=== PATIENT | male | born 1980 | race American Indian/Alaskan Native ===

== ENCOUNTER 2021-12-01 15:38 | Outpatient (CLI) | payer BC ==
[2021-12-01 16:28] LABS: Basophils % (Auto) 0.6 % (0.0-1.8); Eosinophils # (Auto) 0.1 K/mm3 (0.0-0.4); Eosinophils % (Auto) 1.6 % (0.0-4.3); Hemoglobin 13.7 gm/dl (11.8-15.2); Lymphocytes # (Auto) 2.2 K/mm3 (1.2-5.4); Lymphocytes % (Auto) 38.5 % (13.4-35.0); Mean Corpuscular HGB Conc 33 % (32-34); Mean Corpuscular Volume 88 fl (84-94); Monocytes # (Auto) 0.4 K/mm3 (0.0-0.8); Monocytes % (Auto) 6.5 % (0.0-7.3); Platelet Count 250 K/mm3 (140-440); Red Blood Count 4.69 M/mm3 (3.65-5.03); Red Cell Distribution Width 14.2 % (13.2-15.2)
[2021-12-01 16:31] LABS: Alanine Aminotransferase 34 units/L (7-56); Albumin 4.7 g/dL (3.9-5); BUN/Creatinine Ratio 9; Blood Urea Nitrogen 8 mg/dL (9-20); Calcium 9.4 mg/dL (8.4-10.2); Hemolysis Index 6
== END 2021-12-01 15:39 | disposition home or self-care (01) ==
LOC: LAB 15:38
PROVIDERS: ATTEND Surgery
DX: K80.20 Calculus of gallbladder without cholecystitis without obstruction (principal)
CPT/HCPCS: 36415; 80053; 82150; 85025

== ENCOUNTER 2021-12-17 09:08 | Day surgery (SDC) | payer BC ==
[~2021-12-17 09:08] MED LIST: ACETAMINOPHEN 500 MG TAB PO SCH; CELECOXIB 200 MG CAP PO NR; GABAPENTIN 300 MG CAP PO NR; LACTATED RINGERS 1,000 ML IV SCH; MIDAZOLAM 2 MG/2 ML INJ IV NR
[2021-12-17] MEDS ORDERED: oxyCODONE /ACETAMINOPHEN 5-325MG TAB PO PRN (09:47)
--- NOTE | 2021-12-17 09:47 | Anesthesia Consultation ---
Anesthesia Consult and Med Hx Date of service: 12/17/21 - Airway Anesthetic Teeth Evaluation: Good ROM Head & Neck: Adequate Mental/Hyoid Distance: Adequate Mallampati Class: Class III Intubation Access Assessment: Possibly Difficult - Pulmonary Exam CTA: Yes - Cardiac Exam Cardiac Exam: RRR - Pre-Operative Health Status ASA Pre-Surgery Classification: ASA2 Proposed Anesthetic Plan: General - Pulmonary Hx Smoking: No Hx Respiratory Symptoms: No Hx Sleep Apnea: No (possible; patient has sleep study scheduled) - Cardiovascular System Hx Hypertension: Yes (last dose amlodipine yesterday PM) Hx Heart Attack/AMI: No Hx Percutaneous Transluminal Coronary Angioplasty (PTCA): No Hx Cardia Arrhythmia: No (palpitation with recent neg cardiac w/u per patient) - Central Nervous System CVA: No - Endocrine Hx Renal Disease: No Hx Liver Disease: No Hx Non-Insulin Dependent Diabetes: No (pre-DM; no meds) Hx Thyroid Disease: No - Other Systems Hx Obesity: Yes (BMI 33) - Additional Comments Anesthesia Medical History Comments: No hx anesthetic complications. Went to ED last week for palpitations and had negative cardiac work up. Followed up with outpatient cardiology on 12/14/21 and antihypertensive was changed.
--- NOTE | 2021-12-17 09:47 | Anesthesia Day of Surgery ---
Anesthesia Day of Surgery - Day of Surgery Patient Examined: Yes Patient H&P Reviewed: Yes Patient is NPO: Yes
[2021-12-17] MEDS ORDERED: ONDANSETRON 4 MG/2 ML INJ IV PRN (09:48)
[2021-12-17] MEDS ORDERED: HYDROmorphone 0.5 MG/0.5 ML INJ IV PRN (09:48)
[2021-12-17] MEDS ORDERED: ceFAZolin/Water 2 GM/20 ML 2 GM/20 ML SYRINGE IV ONE (10:09)
[2021-12-17] MEDS ORDERED: ONDANSETRON 4 MG/2 ML INJ ONE (10:32)
[2021-12-17] MEDS ORDERED: ROCURONIUM 50 MG/5 ML INJ IV ONE ×2 (10:32→11:59)
[2021-12-17] MEDS ORDERED: fentaNYL 100 MCG/2 ML INJ ONE (10:32)
[2021-12-17] MEDS ORDERED: LIDOCAINE-MPF (0.5%) 5 MG/1 ML VIAL 50 ML INFILTRATI ONE (10:32)
[2021-12-17] MEDS ORDERED: propofoL 200 MG/20 ML VIAL IV ONE (10:33)
[2021-12-17] MEDS ORDERED: BUPIVACAINE-EPINEPHRINE/PF 0.5%-1:200,000 (30 ML) VIAL INFILTRATI ONE (10:39)
[2021-12-17] MEDS ORDERED: LIDOCAINE (1%) 10 MG/1 ML VIAL 20 ML MDV ONE (10:39)
[2021-12-17] MEDS ORDERED: ceFAZolin/STERILE WATER 2 GM/20 ML SYRINGE IV NR (11:00)
[2021-12-17] MEDS ORDERED: BUPIVACAINE-EPINEPHRINE/PF 0.5%-1:200,000 (10 ML) VIAL INFILTRATI ONE (11:50)
[2021-12-17] MEDS ORDERED: LIDOCAINE (1%) 10 MG/1 ML VIAL 20 ML MDV INFILTRATI ONE (11:52)
[2021-12-17] MEDS ORDERED: SODIUM CHLORIDE 0.9% IRR 1,500 ML BOTTLE IR ONE (11:53)
[2021-12-17] MEDS ORDERED: KETOROLAC 30 MG/1 ML INJ ONE (11:59)
[2021-12-17] MEDS ORDERED: HYDROmorphone 1 MG/1 ML INJ ONE (11:59)
[2021-12-17] MEDS ORDERED: PHENYLEPHRINE/NS 1,000 MCG/10 ML SYRINGE (OR USE) IV ONE (11:59)
[2021-12-17] MEDS ORDERED: SUGAMMADEX SODIUM 200 MG/2 ML VIAL IV ONE (12:24)
--- NOTE | 2021-12-17 12:39 | Short Stay Summary ---
Short Stay Documentation Date of service: 12/17/21 - History H&P: obtained from office - Allergies and Medications Current Medications: Allergies No Known Allergies Allergy (Verified 12/07/21 10:55) Home Medications Medication Instructions Recorded Confirmed Last Taken Type amLODIPine 5 mg PO DAILY 12/17/21 12/17/21 12/16/21 09:00 History Active Medications Acetaminophen (Acetaminophen 500 Mg Tab) 1,000 mg PO PREOP ZACKARY Stop: 12/17/21 23:59 Last Admin: 12/17/21 10:05 Dose: 1,000 mg Celecoxib (Celecoxib 200 Mg Cap) 200 mg PO PREOP NR Stop: 12/17/21 23:59 Last Admin: 12/17/21 10:05 Dose: 200 mg Gabapentin (Gabapentin 300 Mg Cap) 300 mg PO PREOP NR Stop: 12/17/21 23:59 Last Admin: 12/17/21 10:05 Dose: 300 mg Hydromorphone HCl (Hydromorphone 0.5 Mg/0.5 Ml Inj) 0.5 mg IV Q10MIN PRN PRN Reason: Pain , Severe (7-10) Stop: 12/17/21 23:59 Lactated Ringer's (Lactated Ringers) 1,000 mls @ 100 mls/hr IV DIRECT ZACKARY Stop: 12/17/21 23:59 Last Admin: 12/17/21 10:20 Dose: 100 mls/hr Midazolam HCl (Midazolam 2 Mg/2 Ml Inj) 2 mg IV PREOP NR Stop: 12/17/21 23:59 Last Admin: 12/17/21 10:21 Dose: 2 mg Ondansetron HCl (Ondansetron 4 Mg/2 Ml Inj) 4 mg IV ONCE PRN PRN Reason: Nausea And Vomiting Stop: 12/17/21 23:59 Oxycodone/Acetaminophen (Oxycodone /Acetaminophen 5-325mg Tab) 1 tab PO ONCE PRN PRN Reason: Pain, Moderate (4-6) Stop: 12/17/21 23:59 - Brief post op/procedure progress note Date of procedure: 12/17/21 Pre-op diagnosis: Cholecystitis with cholelithiasis Post-op diagnosis: same Procedure: Lap Loretta Anesthesia: GETA Findings: Cholecystitis with cholelithiasis Surgeon: MARV BUSTAMANTE Office Employee: VIVIANA LINDA Estimated blood loss: minimal Pathology: list (Gallbladder and stones) Specimen disposition: to lab Condition: stable - Disposition Condition at discharge: Good Disposition: 01 HOME / SELF CARE / HOMELESS Short Stay Discharge Plan Activity: advance as tolerated Weight Bearing Status: Full Weight Bearing Diet: regular Wound: open to air Follow up with: PRIMARY CARE, [Primary Care Provider] - 7 Days MARV BUSTAMANTE MD [Staff Physician] - 7 Days Prescriptions: HYDROcodone/APAP 5-325 [[place] 5/325] 1 each PO Q6HR PRN #10 tablet PRN Reason: Pain
--- NOTE | 2021-12-17 12:49 | Operative Report ---
Operative Report Operative Report: Date: 12/17/2021 Preop diagnosis: cholecystitis with cholelithiasis Postop diagnosis: same Procedure: Robotic cholecystectomy without cholangiogram Surgeon: Dr. Crenshaw Stockroom Clerk: Dr. Steel Anesthesia type: General endotracheal anesthesia Estimated blood loss: 10 cc Specimen: Gallbladder and stone Procedure: Patient is taken to the OR and after timeout are completed the abdomen was prepped with ChloraPrep and draped in a sterile fashion. A 3 mm incision is made in the left upper quadrant and a Veress needle was used to gain access to the peritoneal cavity the abdomen seen then insufflated with CO2. To the right of the umbilicus a 12 mm incision is made a 5 mm Visiport is used to gain access to the peritoneal cavity abdomen is inspected laparoscopically with a 5 mm 0 degree scope. 2 8 mm ports are established 1 in the lateral left upper quadrant 1 in the left hypogastric area. A third 8 mm port is established in the right upper quadrant. And the 5 Jauregui port is removed and replaced with a 12 mm Perales trocar. The robot is then brought up to the side of the table just above the patient's right shoulder and docked. Progress is placed through the left lateral port a cautery hook through the left hypogastric port the robotic camera is placed through the 12 mm port and a Salvatore grasper is used in the right upper quadrant port. Gallbladder graspers are used through the right subcostal ports. Adhesions over the top of the liver on the right side are noted. The gallbladder was retracted superiorly anteriorly and laterally. The peritoneal reflection and adventitia are dissected with a cautery hook to expose the cystic duct and cystic artery as well as the cystic cleft. Critical view of safety is demonstrated. The cystic artery and cystic duct are clipped simultaneously as they are next to each other. 2 clips were placed on the patient's side of the structures and one clip at its junction with the gallbladder. Both structures were then divided between the clips with a EndoShears. The gallbladder was dissected off the gallbladder fossa It was then extracted after being placed in a specimen bag through the 12 mm periumbilical port. Hemostasis is good as and is improved with the electrocautery hook. The robot is then undocked from the patient. Sponge and needle counts are noted to be correct at this time. A [employer] system was used to close the 12 mm periumbilical port with an 0 Vicryl suture. The skin is closed with 4-0 Monocryl and Dermabond. Patient tolerated procedure well.
--- NOTE | 2021-12-17 15:12 | Post Anesthesia Evaluation ---
- Post Anesthesia Evaluation Patient Participated: Yes Airway Patent: Yes Stable Respiratory Function: Yes Nausea/Vomiting: No Temp > 96.8F: Yes Pain Manageable: Yes Adequeate Hydration: Yes Anesthesia Complications: No
[2021-12-17 15:14] VITALS: BP 135/74
== END 2021-12-17 15:10 | disposition home or self-care (01) ==
LOC: OR 09:08
PROVIDERS: ATTEND Surgery
DX: K80.10 Calculus of gallbladder with chronic cholecystitis without obstruction (principal); I42.9 Cardiomyopathy, unspecified; E78.00 Pure hypercholesterolemia, unspecified; I10 Essential (primary) hypertension; E66.9 Obesity, unspecified; E11.9 Type 2 diabetes mellitus without complications; F32.9 Major depressive disorder, single episode, unspecified; F41.9 Anxiety disorder, unspecified; Z79.899 Other long term (current) drug therapy; Z87.442 Personal history of urinary calculi; Z87.440 Personal history of urinary (tract) infections; Z72.89 Other problems related to lifestyle; Z98.890 Other specified postprocedural states; Z68.33 Body mass index [BMI] 33.0-33.9, adult
CPT/HCPCS: 47562; 82962; 88304; J0690; J1170; J1885; J2250; J2370; J2405; J2704; J3010; J3490; J7120; S2900

== ENCOUNTER 2021-12-19 15:35 | Emergency (ER) | payer BC ==
--- NOTE | 2021-12-19 16:37 | Emergency Department Report ---
HPI - General Chief Complaint: Extremity Problem,Nontraumatic Time Seen by Provider: 12/19/21 16:22 - HPI HPI: Room 24 Patient is a 41-year-old male present with a chief complaint of bilateral lower extremity pain. Patient states she is status post laparoscopic cholecystectomy 2 days ago. Patient states last night he developed throbbing pain in both lower extremities with a being greatest in the left. Patient complains of pain from the knees distally. Patient admits to an occasional cough since last night that is nonproductive. ED Past Medical Hx - Past Medical History Hx Hypertension: Yes (last dose amlodipine yesterday PM) Hx Diabetes: Yes ("BORDERLINE DIABETES" PER PATIENT) Hx Kidney Stones: Yes - Surgical History Hx Cholecystectomy: Yes Additional Surgical History: achilles, right shoulder - Family History Family history: no significant - Social History Smoking Status: Never Smoker Substance Use Type: None, Alcohol (Denies illicit drug use) - Medications Home Medications: Home Medications Medication Instructions Recorded Confirmed Last Taken Type HYDROcodone/APAP 5-325 [[place] 1 each PO Q6HR PRN #10 tablet 12/17/21 Unknown Rx 5/325] amLODIPine 5 mg PO DAILY 12/17/21 12/17/21 12/16/21 09:00 History Cyclobenzaprine [Flexeril] 10 mg PO TID PRN #10 12/19/21 Unknown Rx oxyCODONE /ACETAMINOPHEN [Percocet 1 - 2 tab PO Q6HR PRN #14 tablet 12/19/21 Unknown Rx 5/325] ED Review of Systems ROS: Stated complaint: BOTH LEG NUMBNESS (JUST HAD SURGERY) Other details as noted in HPI Constitutional: denies: fever Eyes: denies: eye pain ENT: denies: throat pain Respiratory: cough Cardiovascular: denies: chest pain Endocrine: no symptoms reported Gastrointestinal: abdominal pain (Appropriate postop discomfort) Genitourinary: denies: dysuria Musculoskeletal: myalgia Neurological: denies: headache Physical Exam - Physical Exam Vital Signs: Vital Signs 12/19/21 16:12 Temperature 98.8 F Pulse Rate 92 H Respiratory 20 Rate Blood Pressure 139/69 [Left] O2 Sat by Pulse 97 Oximetry Physical Exam: GENERAL: The patient is well-developed well-nourished male lying on stretcher not appearing to be in acute distress. [] HEENT: Normocephalic. Atraumatic. Extraocular motions are intact. Patient has moist mucous membranes. NECK: Supple. Trachea midline CHEST/LUNGS: Clear to auscultation. There is no respiratory distress noted. HEART/CARDIOVASCULAR: Regular. There is no tachycardia. There is no gallop rub or murmur. ABDOMEN: Abdomen is soft, with appropriate postop discomfort to palpation SKIN: There is no rash. There is no edema. There is no diaphoresis. NEURO: The patient is awake, alert, and oriented. The patient is cooperative. The patient has no focal neurologic deficits. The patient has normal speech. GCS 15 MUSCULOSKELETAL: There is negative Homans' sign bilaterally. There is no evidence of acute injury. ED Course Vital Signs 12/19/21 16:12 Temperature 98.8 F Pulse Rate 92 H Respiratory 20 Rate Blood Pressure 139/69 [Left] O2 Sat by Pulse 97 Oximetry ED Medical Decision Making - Lab Data Result diagrams: 12/19/21 17:04 12/19/21 17:04 - Radiology Data Radiology results: report reviewed (Chest x-ray, bilateral lower extremity Dopplers), image reviewed (Chest x-ray, bilateral lower extremity Doppler) [facility] [address] [place] [address] Vascular Lab Report Signed Patient: GALEN SANTORO MR#: [id number] : 1980 Acct:[id number] Age/Sex: 41 / M ADM Date: 12/19/21 Loc: ED Attending Dr: Ordering Physician: KAHLIL LOMELI MD Date of Service: 12/19/21 Procedure(s): VL venous duplex LE BIL Accession Number(s): [id number] cc: KAHLIL LOMELI MD DUPLEX DOPPLER LOWER EXTREMITY VEINS, BILATERAL INDICATION / CLINICAL INFORMATION: Pain. TECHNIQUE: Duplex doppler imaging was performed through the veins of both lower extremities using venous compression and other maneuvers. COMPARISON: None available. FINDINGS: RIGHT COMMON FEMORAL VEIN: Negative. RIGHT FEMORAL VEIN: Negative. RIGHT POPLITEAL VEIN: Negative. RIGHT CALF VEINS: Negative. LEFT COMMON FEMORAL VEIN: Negative. LEFT FEMORAL VEIN: Negative. LEFT POPLITEAL VEIN: Negative. LEFT CALF VEINS: Negative. ADDITIONAL FINDINGS: None. IMPRESSION: 1. No sonographic evidence for DVT in either lower extremity. Signer Name: Stephen Gray MD Signed: 12/19/2021 6:29 PM Workstation Name: [id number] Transcribed By: TL Dictated By: Stephen Gray MD Electronically Authenticated By: Stephen Gray MD Signed Date/Time: 12/19/211828 DD/ 28 TD/TT: [address] [address] XRay Report Signed Patient: GALEN SANTORO MR#: [id number] : 1980 Acct:[id number] Age/Sex: 41 / M ADM Date: 12/19/21 Loc: ED Attending Dr: Ordering Physician: KAHLIL LOMELI MD Date of Service: 12/19/21 Procedure(s): XR chest 1V ap Accession Number(s): [id number] cc: KAHLIL LOMELI MD Fluoro Time In Minutes: CHEST 1 VIEW 12/19/2021 4:38 PM INDICATION / CLINICAL INFORMATION: Cough. COMPARISON: None available. FINDINGS: SUPPORT DEVICES: None. HEART / MEDIASTINUM: The heart size and pulmonary vasculature are normal. LUNGS / PLEURA: No significant pulmonary or pleural abnormality. No pneumothorax. ADDITIONAL FINDINGS: No significant additional findings. IMPRESSION: No acute findings. Signer Name: Caio Larios MD Signed: 12/19/2021 4:52 PM Workstation Name: [id number] Transcribed By: RT Dictated By: Caio Larios MD Electronically Authenticated By: Caio Larios MD Signed Date/Time: 12/19/211651 DD/ 50 TD/TT: [address] [address] Cat Scan Report Signed Patient: GALEN SANTORO MR#: [id number] : 1980 Acct:[id number] Age/Sex: 41 / M ADM Date: 12/19/21 Loc: ED Attending Dr: Ordering Physician: KAHLIL LOMELI MD Date of Service: 12/19/21 Procedure(s): CT angio chest Accession Number(s): [id number] cc: KAHLIL LOMELI MD CTA CHEST WITH CONTRAST INDICATION / CLINICAL INFORMATION: Shortness of breath. TECHNIQUE: Axial CT images were obtained through the chest after injection of 100 cc Omni 350 IV contrast. 3 plane MIP and/or 3D reconstructions were produced. All CT scans at this location are performed using CT dose reduction for ALARA by means of automated exposure control. COMPARISON: None available. FINDINGS: PULMONARY EMBOLUS: None. THORACIC AORTA: No significant abnormality. HEART: No significant abnormality. CORONARY ARTERY CALCIFICATION: Absent -- None. MEDIASTINUM / JESSE: No significant abnormality. PLEURA: No pleural effusion. No pneumothorax. LUNGS: No acute air space or interstitial disease. Linear atelectasis left lower lobe ADDITIONAL FINDINGS: None. UPPER ABDOMEN: Several tiny bubbles of free air beneath the right hemidiaphragm SKELETAL STRUCTURES: No significant osseous abnormality. IMPRESSION: 1. No CT evidence for pulmonary embolism. 2. Tiny postop pneumoperitoneum characteristic for patient's recent cholecystectomy 2 days ago Signer Name: Stephen Gray MD Signed: 12/19/2021 8:01 PM Workstation Name: [id number] Transcribed By: TL Dictated By: Stephen Gray MD Electronically Authenticated By: Stephen Gray MD Signed Date/Time: 12/19/212000 DD/ 54 TD/TT: - Differential Diagnosis DVTs, myalgia, rhabdomyolysis Critical care attestation.: If time is entered above; I have spent that time in minutes in the direct care of this critically ill patient, excluding procedure time. ED Disposition Clinical Impression: Leg pain, bilateral, Cough Disposition: HOME / SELF CARE / HOMELESS Is pt being admited?: No Does the pt Need Aspirin: No Condition: Stable Additional Instructions: Return to the emergency department should you develop worsening symptoms, in ability to tolerate food or liquids, high fever or any other concerns Prescriptions: Cyclobenzaprine [Flexeril] 10 mg PO TID PRN #10 PRN Reason: Muscle Spasm oxyCODONE /ACETAMINOPHEN [Percocet 5/325] 1 - 2 tab PO Q6HR PRN #14 tablet PRN Reason: Pain Referrals: MARV BUSTAMANTE MD [Staff Physician] - 3-5 Days Time of Disposition: 20:12
--- NOTE | 2021-12-19 16:56 | XRay Report ---
CHEST 1 VIEW 12/19/2021 4:38 PM INDICATION / CLINICAL INFORMATION: Cough. COMPARISON: None available. FINDINGS: SUPPORT DEVICES: None. HEART / MEDIASTINUM: The heart size and pulmonary vasculature are normal. LUNGS / PLEURA: No significant pulmonary or pleural abnormality. No pneumothorax. ADDITIONAL FINDINGS: No significant additional findings. IMPRESSION: No acute findings. Signer Name: Caio Larios MD Signed: 12/19/2021 4:52 PM Workstation Name: [id number]
[2021-12-19 18:05] LABS: Basophils % (Auto) 0.5 % (0.0-1.8); Eosinophils # (Auto) 0.1 K/mm3 (0.0-0.4); Eosinophils % (Auto) 1.2 % (0.0-4.3); Hemoglobin 13.8 gm/dl (11.8-15.2); Lymphocytes # (Auto) 2.2 K/mm3 (1.2-5.4); Lymphocytes % (Auto) 34.7 % (13.4-35.0); Mean Corpuscular HGB Conc 35 % (32-34); Mean Corpuscular Volume 88 fl (84-94); Monocytes # (Auto) 0.4 K/mm3 (0.0-0.8); Platelet Count 233 K/mm3 (140-440); Red Blood Count 4.57 M/mm3 (3.65-5.03); Red Cell Distribution Width 13.7 % (13.2-15.2)
[2021-12-19 18:30] LABS: Alanine Aminotransferase 90 units/L (7-56); Albumin 4.4 g/dL (3.9-5); BUN/Creatinine Ratio 11; Blood Urea Nitrogen 10 mg/dL (9-20); Calcium 9.2 mg/dL (8.4-10.2); Hemolysis Index 6
--- NOTE | 2021-12-19 18:34 | Vascular Lab Report ---
DUPLEX DOPPLER LOWER EXTREMITY VEINS, BILATERAL INDICATION / CLINICAL INFORMATION: Pain. TECHNIQUE: Duplex doppler imaging was performed through the veins of both lower extremities using venous gaurang almas and other maneuvers. COMPARISON: None available. FINDINGS: RIGHT COMMON FEMORAL VEIN: Negative. RIGHT FEMORAL VEIN: Negative. RIGHT POPLITEAL VEIN: Negative. RIGHT CALF VEINS: Negative. LEFT COMMON FEMORAL VEIN: Negative. LEFT FEMORAL VEIN: Negative. LEFT POPLITEAL VEIN: Negative. LEFT CALF VEINS: Negative. ADDITIONAL FINDINGS: None. IMPRESSION: 1. No sonographic evidence for DVT in either lower extremity. Signer Name: Stephen Gray MD Signed: 12/19/2021 6:29 PM Workstation Name: [id number]
--- NOTE | 2021-12-19 20:05 | Cat Scan Report ---
CTA CHEST WITH CONTRAST INDICATION / CLINICAL INFORMATION: Shortness of breath. TECHNIQUE: Axial CT images were obtained through the chest after injection of 100 cc Omni 350 IV cont rast. 3 plane MIP and/or 3D reconstructions were produced. All CT scans at this location are performe d using CT dose reduction for ALARA by means of automated exposure control. COMPARISON: None available. FINDINGS: PULMONARY EMBOLUS: None. THORACIC AORTA: No significant abnormality. HEART: No significant abnormality. CORONARY ARTERY CALCIFICATION: Absent -- None. MEDIASTINUM / JESSE: No significant abnormality. PLEURA: No pleural effusion. No pneumothorax. LUNGS: No acute air space or interstitial disease. Linear atelectasis left lower lobe ADDITIONAL FINDINGS: None. UPPER ABDOMEN: Several tiny bubbles of free air beneath the right hemidiaphragm SKELETAL STRUCTURES: No significant osseous abnormality. IMPRESSION: 1. No CT evidence for pulmonary embolism. 2. Tiny postop pneumoperitoneum characteristic for patient's recent cholecystectomy 2 days ago Signer Name: Stephen Gray MD Signed: 12/19/2021 8:01 PM Workstation Name: [id number]
[2021-12-19 20:37] VITALS: BP 122/82
== END 2021-12-19 20:24 | disposition home or self-care (01) ==
LOC: ED 15:35
DX: M79.605 Pain in left leg (principal); M79.604 Pain in right leg; R05.9 Cough, unspecified; I10 Essential (primary) hypertension; E11.9 Type 2 diabetes mellitus without complications; Z90.49 Acquired absence of other specified parts of digestive tract; F10.20 Alcohol dependence, uncomplicated
CPT/HCPCS: 36415; 71045; 71275; 80053; 82550; 85025; 93970; 99284; Q9967